=== PATIENT | female | born 1960 ===

== ENCOUNTER → 2019-01-20 09:53 | Outpatient (CLI) | payer OTHER ==
[~2019-01-20 09:53] MED LIST: HYZAAR 100-12.1 EACH PO
== END | disposition home or self-care (01) ==
LOC: LAB 09:53
DX: D64.89 Other specified anemias (principal); E88.89 Other specified metabolic disorders; D68.8 Other specified coagulation defects; N39.0 Urinary tract infection, site not specified; Z22.322 Carrier or suspected carrier of Methicillin resistant Staphylococcus aureus; M75.121 Complete rotator cuff tear or rupture of right shoulder, not specified as traumatic; M19.011 Primary osteoarthritis, right shoulder; M75.21 Bicipital tendinitis, right shoulder; Z76.89 Persons encountering health services in other specified circumstances; I10 Essential (primary) hypertension

== ENCOUNTER 2019-01-31 10:17 | Day surgery (SDC) | payer OTHER | END 2019-01-31 21:10 | disposition home or self-care (01) | LOC: CIR.AMB 10:17 | DX: M75.121 Complete rotator cuff tear or rupture of right shoulder, not specified as traumatic (principal); M24.111 Other articular cartilage disorders, right shoulder; M19.011 Primary osteoarthritis, right shoulder; M75.21 Bicipital tendinitis, right shoulder ==

== ENCOUNTER 2019-02-19 14:46 | Outpatient (CLI) | payer OTHER | END 2019-02-19 15:08 | disposition home or self-care (01) | LOC: RAD 14:46 | DX: M75.21 Bicipital tendinitis, right shoulder (principal) ==

== ENCOUNTER 2021-01-04 06:49 | Outpatient (CLI) | payer OTHER | END 2021-01-04 07:06 | disposition home or self-care (01) | LOC: LAB 06:49 | PROVIDERS: ATTEND Orthopaedic Surgery | DX: E83.42 Hypomagnesemia (principal); E56.1 Deficiency of vitamin K; M81.8 Other osteoporosis without current pathological fracture; E88.89 Other specified metabolic disorders; M85.89 Other specified disorders of bone density and structure, multiple sites ==